=== PATIENT | male | born 1975 | race Caucasian/White ===

== ENCOUNTER 2017-03-06 02:28 | Emergency (ER) | payer OTHER ==
[2017-03-06] MEDS ORDERED: TETRACAINE HCL 150 DROP BTL EACHEYE ONE (02:41)
[2017-03-06] MEDS ORDERED: TETRACAINE HCL 150 DROP BTL ONE (02:41)
--- NOTE | 2017-03-06 02:42 | ERNOTE ---
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 He came across a bucket and thinking it was empty he sprayed into the bucket. The cleaning fluid in the bucket splashed up into his eyes. He immediately flushed his eyes for a few minutes and attempted to go back to work. He quickly realized he needed to flush his eyes more completely. He flushed them again and again attempted to return to work this time he ran across a plastic sheets finishing supervisor and told him what had happened. The plastic sheets finishing supervisor suggested he flush his eyes again and called for EMS. Pt was transported to the ED Severity: Present: moderate, severe ENT Location: Present: eye (R), eye (L) Prearrival Treatment: Present: flushing eys Modifying Factors - Improves: Reports: rest Modifying Factors - Worsens: Reports: nothing Review of Systems - Review of Systems Constitutional: Present: no symptoms reported EYE: Present: see HPI, tearing. Absent: blurred vision ENT: Present: no symptoms reported Respiratory: Present: no symptoms reported Cardiology: Present: no symptoms reported Gastrointestinal/Abdominal: Present: no symptoms reported Genitourinary: Present: no symptoms reported Musculoskeletal: Present: no symptoms reported Skin: Present: no symptoms reported Neurological: Present: no symptoms reported Endocrine: Present: no symptoms reported Hematologic/Lymphatic: Present: no symptoms reported Psych: Present: no symptoms reported Physical Exam - Physical Exam General Appearance: Present: wd/wn, alert, no apparent distress Eye Exam: PERRL: bilateral, EOMI: bilateral, Sclera injection: bilateral - with some scleral edema L>R. pH approx. 7.5 bilateral Ears, Nose, Throat: Present: normal ENT inspection Neck: Present: normal inspection Respiratory: Present: no respiratory distress Neurological Exam: Present: alert, oriented, normal mood/affect Skin Exam: Present: normal color, warm/dry ED Progress - Progress/Reassessment Progress Note-Subjective: 03/06/17 03:26 feeling better although his eyes feel somewhat dry after flushing. No burning and no blurred vision Departure Clinical Impression: Chemical burn of conjunctiva Qualifiers: Encounter type: initial encounter Laterality: unspecified laterality Qualified Code(s): T26.60XA - Corrosion of cornea and conjunctival sac, unspecified eye, initial encounter Chemical burn of cornea Qualifiers: Encounter type: initial encounter Laterality: unspecified laterality Qualified Code(s): T26.60XA - Corrosion of cornea and conjunctival sac, unspecified eye, initial encounter - Departure Disposition: Home Follow Up Needed Condition: Good Instructions: Chemical Conjunctivitis, [id number] Additional Instructions: You should make an appointment to see an eye doctor to reexamine your eyes in the next few days. Use eye ointment three times a day for 3-5 days or until Baggage Agent says you can stop
[2017-03-06] MEDS ORDERED: GENTAMICIN SULFATE 3.5 APPL TUBE EACHEYE ONE (03:27)
[2017-03-06] MEDS ORDERED: GENTAMICIN SULFATE 3.5 APPL TUBE ONE (03:28)
[2017-03-06 04:00] VITALS: BP 150/100
== END 2017-03-06 03:58 | disposition home or self-care (01) ==
LOC: ER 02:28
DX: T26.62XA Corrosion of cornea and conjunctival sac, left eye, initial encounter (principal); T26.61XA Corrosion of cornea and conjunctival sac, right eye, initial encounter; Y93.H9 Activity, other involving exterior property and land maintenance, building and construction; Y92.63 Factory as the place of occurrence of the external cause; Y99.0 Civilian activity done for income or pay